=== PATIENT | male | born 1955 | race Caucasian/White ===

== ENCOUNTER 2020-02-28 12:19 | Inpatient (IN) | payer OTHER ==
[~2020-02-28] VITALS: Ht 175 cm; Wt 95.0 kg
[2020-02-28] MEDS ORDERED: LACTATED RINGERS 1,000 ML IV ONE ×2 (12:37→13:33)
[2020-02-28 13:03] LABS: BASOPHILS % (AUTO) 0 % (0-10); EOSINOPHILS % (AUTO) 0 % (0-10); HEMATOCRIT 43 % (40-54); HEMOGLOBIN 15.1 G/DL (13.3-17.7); LYMPHOCYTES # (AUTO) 0.2 X 10^3 (1.0-4.0); LYMPHOCYTES % (AUTO) 8 % (12-44); MEAN CORPUSCULAR HEMOGLOBIN 29 PG (25-34); MEAN CORPUSCULAR HGB CONC 35 G/DL (32-36); MEAN CORPUSCULAR VOLUME 83 FL (80-99); MEAN PLATELET VOLUME 9.1 FL (7.4-10.4); MONOCYTES # (AUTO) 0.2 X 10^3 (0.0-1.0); MONOCYTES % (AUTO) 7 % (0-12); NEUTROPHILS # (AUTO) 2.2 X 10^3 (1.8-7.8); NEUTROPHILS % (AUTO) 85 % (42-75); PLATELET COUNT 103 10^3/uL (130-400); RED CELL DISTRIBUTION WIDTH 13.1 % (10.0-14.5); WHITE BLOOD COUNT 2.6 10^3/uL (4.3-11.0)
[2020-02-28] MEDS ORDERED: TRZ50T PO (13:07)
[2020-02-28] MEDS ORDERED: ALLO300T2 PO (13:07)
[2020-02-28 13:12] LABS: ALBUMIN 3.9 GM/DL (3.2-4.5); POTASSIUM 4.4 MMOL/L (3.6-5.0)
[2020-02-28 13:13] LABS: CALCIUM 8.9 MG/DL (8.5-10.1)
[2020-02-28 13:15] LABS: TOTAL PROTEIN 7.2 GM/DL (6.4-8.2)
[2020-02-28 13:16] LABS: BILIRUBIN,TOTAL 0.5 MG/DL (0.1-1.0)
[2020-02-28 13:18] LABS: CREATININE SERUM 1.62 MG/DL (0.60-1.30)
--- NOTE | 2020-02-28 13:29 | ED General ---
General Chief Complaint: General Problems/Pain Stated Complaint: WEAKNESS/COVID + Nursing Triage Note: PT TO COVID UNIT, PT STATES WAS + ON 02/21, SX STARTED ON 02/16. PT CO OF WEAKNESS, DIARRHEA, PERSISTANT COUGH, NO TASTE OR SMELL, LOW GRADE FEVER, AND SEVERE FATIGUE Nursing Sepsis Screen: No Definite Risk Source of Information: Patient Exam Limitations: No Limitations History of Present Illness Date Seen by Provider: Feb 28, 2020 Time Seen by Provider: 12:37 Initial Comments Here with report of weakness, diarrhea, cough, lack of taste and smell and significant fatigue. Diagnosed with COVID 19 on 02/21. States he feels dehydrated and is overall feeling worse. Has intermittent headaches as well as intermittent fevers. Denies being significantly short of breath currently. Patient does report 2-3 coughing fits daily that are significant in that seems to be worsening some. Timing/Duration: 1 Week, Getting Worse Severity: Moderate Associated Systoms: No Chest Pain; Cough, Fever/Chills, Headaches, Malaise; No Nausea/Vomiting, No Shortness of Air; Weakness Allergies and Home Medications Allergies Coded Allergies: No Known Drug Allergies (Unverified , 02/28/20) Patient Home Medication List Home Medication List Reviewed: Yes Review of Systems Review of Systems Constitutional: see HPI EENTM: No nose congestion, No throat pain Respiratory: cough; No short of breath Cardiovascular: no symptoms reported Gastrointestinal: see HPI; No abdominal pain; diarrhea Genitourinary: No dysuria, No pain Musculoskeletal: muscle pain, muscle weakness Skin: no symptoms reported All Other Systems Reviewed Negative Unless Noted: Yes Past Rmbnxwo-Sgpdhl-Ifktti Hx Past Med/Social Hx: Reviewed Nursing Past Med/Soc Hx Patient Social History Alcohol Use: Denies Use Recreational Drug Use: No Smoking Status: Never a Smoker Recent Foreign Travel: No Contact w/Someone Who Travel: No Recent Infectious Disease Expo: No Recent Hopitalizations: No Physical Abuse: No Sexual Abuse: No Past Medical History Surgeries: No Respiratory: No Cardiac: No Neurological: No Genitourinary: No Gastrointestinal: No Musculoskeletal: Yes Gout Endocrine: No HEENT: No Cancer: No Psychosocial: No Integumentary: No Family Medical History Reviewed Nursing Family Hx No Pertinent Family Hx Physical Exam Vital Signs Vital Signs - First Documented 02/28/20 02/28/20 12:35 14:11 Temp 36.6 Pulse 89 Resp 20 B/P (MAP) 134/97 (109) Pulse Ox 93 O2 Delivery Room Air O2 Flow Rate 2.00 Capillary Refill : Less Than 3 Seconds Height, Weight, BMI Height: '" Weight: lbs. oz. kg; 31.00 BMI Method: General Appearance: No Apparent Distress, WD/WN HEENT: PERRL/EOMI, Pharynx Normal Neck: Non Tender, Supple Respiratory: Lungs Clear, Normal Breath Sounds Cardiovascular: Regular Rate, Rhythm, No Murmur Gastrointestinal: Non Tender, Soft Back: Normal Inspection, No CVA Tenderness, No Vertebral Tenderness Extremity: Normal Range of Motion, Non Tender Neurologic/Psychiatric: Alert, Oriented x3 Skin: Normal Color, Warm/Dry Progress/Results/Core Measures Suspected Sepsis Recent Fever Within 48 Hours: Yes Infection Criteria Present: Documented Infection New/Unexplained Altered Menta: No Sepsis Screen: No Definite Risk SIRS Temperature: Pulse: 89 Respiratory Rate: 20 Laboratory Tests 02/28/20 12:45: White Blood Count 2.6L Blood Pressure 134 /97 Mean: 109 Laboratory Tests 02/28/20 12:45: Creatinine 1.62H, Platelet Count 103L, Total Bilirubin 0.5 Results/Orders Lab Results Laboratory Tests Test 02/28/20 12:45 02/28/20 13:45 Range/Units White Blood Count 2.6 L 4.3-11.0 10^3/uL Red Blood Count 5.23 4.35-5.85 10^6/uL Hemoglobin 15.1 13.3-17.7 G/DL Hematocrit 43 40-54 % Mean Corpuscular Volume 83 80-99 FL Mean Corpuscular Hemoglobin 29 25-34 PG Mean Corpuscular Hemoglobin Concent 35 32-36 G/DL Red Cell Distribution Width 13.1 10.0-14.5 % Platelet Count 103 L 130-400 10^3/uL Mean Platelet Volume 9.1 7.4-10.4 FL Neutrophils (%) (Auto) 85 H 42-75 % Lymphocytes (%) (Auto) 8 L 12-44 % Monocytes (%) (Auto) 7 0-12 % Eosinophils (%) (Auto) 0 0-10 % Basophils (%) (Auto) 0 0-10 % Neutrophils # (Auto) 2.2 1.8-7.8 X 10^3 Lymphocytes # (Auto) 0.2 L 1.0-4.0 X 10^3 Monocytes # (Auto) 0.2 0.0-1.0 X 10^3 Eosinophils # (Auto) 0.0 0.0-0.3 10^3/uL Basophils # (Auto) 0.0 0.0-0.1 10^3/uL Sodium Level 132 L 135-145 MMOL/L Potassium Level 4.4 3.6-5.0 MMOL/L Chloride Level 99 98-107 MMOL/L Carbon Dioxide Level 21 21-32 MMOL/L Anion Gap 12 5-14 MMOL/L Blood Urea Nitrogen 19 H 7-18 MG/DL Creatinine 1.62 H 0.60-1.30 MG/DL Estimat Glomerular Filtration Rate 43 BUN/Creatinine Ratio 12 Glucose Level 271 H 70-105 MG/DL Calcium Level 8.9 8.5-10.1 MG/DL Corrected Calcium 9.0 8.5-10.1 MG/DL Total Bilirubin 0.5 0.1-1.0 MG/DL Aspartate Amino Transf (AST/SGOT) 31 5-34 U/L Alanine Aminotransferase (ALT/SGPT) 30 0-55 U/L Alkaline Phosphatase 81 40-136 U/L C-Reactive Protein High Sensitivity 11.86 H 0.00-0.50 MG/DL Total Protein 7.2 6.4-8.2 GM/DL Albumin 3.9 3.2-4.5 GM/DL My Orders Orders - ELISABETH SANTIZO MD Cbc With Automated Diff (02/28/20 12:37) Comprehensive Metabolic Panel (02/28/20 12:37) Hs C Reactive Protein (02/28/20 12:37) Ua Culture If Indicated (02/28/20 12:37) Ed Iv/Invasive Line Start (02/28/20 12:37) Lactated Ringers (Lr 1000 Ml Iv Solution (02/28/20 12:37) Chest 1 View, Ap/Pa Only (02/28/20 12:37) Dexamethasone Tablet (Decadron Tablet) (02/28/20 13:45) Lactated Ringers (Lr 1000 Ml Iv Solution (02/28/20 13:33) Covid-19 External Lab Results (02/28/20 14:15) Medications Given in ED Current Medications Medications Dose Ordered Sig/Star Route Start Time Stop Time Status Last Admin Dose Admin Lactated Ringer's 1,000 ml @ 0 mls/hr Q0M ONCE IV 02/28/20 12:37 02/28/20 12:41 DC 02/28/20 12:50 1,000 MLS/HR Lactated Ringer's 1,000 ml @ 0 mls/hr Q0M ONCE IV 02/28/20 13:33 02/28/20 13:34 DC 02/28/20 13:40 1,000 MLS/HR Vital Signs/I&O 02/28/20 02/28/20 12:35 14:11 Temp 36.6 Pulse 89 80 Resp 20 20 B/P (MAP) 134/97 (109) 148/97 (109) Pulse Ox 93 99 O2 Delivery Room Air Nasal Cannula O2 Flow Rate 2.00 Capillary Refill : Less Than 3 Seconds Blood Pressure Mean: 109 Progress Note : Progress Note Seen and evaluated initially via video and then in person. IV, labs, chest x-ray and LR 1 L bolus ordered. Monitor patient. 1400: Repeat LR 1 L bolus ordered. I did discuss the case with Dr. Espinoza especially due to the patient's x-ray. Patient is COVID-19 positive. At this point I think admission is indicated and she agrees. Decadron 6 mg by mouth. We will continue that daily. Patient has elevated blood sugar and we will initiate insulin sliding scale. All findings and concerns were discussed with the patient and he agrees with admission. Patient is much more comfortable on oxygen. Diagnostic Imaging Diagonstic Imaging: Xray Plain Films/CT/US/NM/MRI: chest Comments [facility] [place] NAME: FREDDY MADRIGAL [facility] REC#: [id number] PT STATUS: ADM IN : 1955 PHYSICIAN: ELISABETH SANTIZO MD ADMIT DATE: 02/28/20/ Draft Date of Exam:02/28/20 CHEST 1 VIEW, AP/PA ONLY INDICATION: Weakness, shortness of air. COMPARISON: None available. TECHNIQUE: Single radiograph of the chest dated February 28, 2020. FINDINGS: The cardiac silhouette is normal in size. No significant pulmonary vascular congestion. Patchy predominantly airspace opacities are noted within the bilateral lungs, greatest within the periphery. No significant pleural effusion. No pneumothorax. No acute osseous abnormality. IMPRESSION: Bilateral pulmonary infiltrates as described above. Findings concerning for infectious etiology, including COVID-19. Dictated on workstation # [id number] Dict: 02/28/20 1341 Trans: 02/28/20 1355 [employer] [id number] Interpreted by: JHON STINSON MD Electronically signed by: Departure Communication (Admissions) Time/Spoke to Admitting Phy: 13:55 Impression Primary Impression: Coronavirus infection Additional Impression: Viral pneumonia Disposition: ADMITTED INPATIENT Condition: Stable Admissions Decision to Admit Reason: Admit from ER (General) Decision to Admit/Date: Feb 28, 2020 Time/Decision to Admit Time: 13:55 ELISABETH SANTIZO MD Feb 28, 2020 13:29
--- NOTE | 2020-02-28 13:56 | Diagnostic Imaging Report ---
INDICATION: Weakness, shortness of air. COMPARISON: None available. TECHNIQUE: Single radiograph of the chest dated February 28, 2020. FINDINGS: The cardiac silhouette is normal in size. No significant pulmonary vascular congestion. Patchy predominantly airspace opacities are noted within the bilateral lungs, greatest within the periphery. No significant pleural effusion. No pneumothorax. No acute osseous abnormality. IMPRESSION: Bilateral pulmonary infiltrates as described above. Findings concerning for infectious etiology, including COVID-19. Dictated by: Dictated on workstation # [id number]
--- OUTSIDE RECORDS SUMMARY | 2020-02-28 14:01 | XMS REPORT ---
Author Author Sotne STEELE Organization [facility] Address [address] [place] [address] Care Team Providers Care Agricultural Engineering Teacher Name Role Phone IVETTE HAMIDA Unavailable PROBLEMS Unknown Problems ALLERGIES No Known Allergies ENCOUNTERS Encounter Location Date Diagnosis [place] [address] [place], [place] [id number] [place] [phone] Aug, [facility] [address] [place] [address] May, Allergic contact dermatitis due to plants, except food L23.7 [place] [address] [place], [place] [id number] [place] [phone] May, [place] [address] [place] [id number] [place] [phone] May, [place] [address] [place] [id number] [place] [phone] 9 Apr, Lipid screening Z13.220 ; Well adult exam Z00.00 and Anoxia due to high altitude, initial encounter T70.29XA [place] [address] [place] [id number] [address] Feb, [facility] [address] [place] [id number] [place] [phone] 9 Feb, [facility] [address] [address] [facility] [id number] [place] [address] Oct, Acute midline low back pain without scia juarez M54.5 [facility] [address] [place] [id number] [address] Oct, Acute midline low back pain without sciatica M54.5 [place] [address] [place], [place] [id number] [place] [phone] 9 Oct, IMMUNIZATIONS No Known Immunizations SOCIAL HISTORY Never Assessed REASON FOR VISIT Fell on ice a couple months ago and has had lower back pain since, jerson vicenteRN PLAN OF CARE Activity Details Follow Up prn Reason: VITAL SIGNS Height 70 in 2018-10-13 Weight 222 lbs 2018-10-13 Temperature 98 degrees Fahrenheit 2018-10-13 Heart Rate 84 bpm 2018-10-13 Respiratory Rate 14 2018-10-13 BMI 31.85 kg/m2 2018-10-13 Blood pressure systolic 132 mmHg 2018-10-13 Blood pressure diastolic 78 mmHg 2018-10-13 MEDICATIONS Medication Instructions Dosage Frequency Start Date End Date Duration S tatus Allopurinol 300 TAKE 0.5 TABLETS (150 MG) BY MOUTH DAILY. Active Trazodone HCl 50 TAKE 1 TABLET BY MOUTH AT BEDTIME 90 Active Tramadol HCl 50 TAKE 1 TABLET BY MOUTH EVERY 4 HOURS NEED ED FOR PAIN 16 Active Pantoprazole Sodium 40 1 TAB PO DAILY,INSTR:TK 1 T PO QD Active RESULTS No Results PROCEDURES No Known procedures INSTRUCTIONS MEDICATIONS ADMINISTERED No Known Medications MEDICAL (GENERAL) HISTORY Type Description Date Medical History gout Medical History chronic sleep disorder Medical History meniscal tear...right Surgical History meniscal tear repair ...right Hospitalization History see surgeries
--- OUTSIDE RECORDS SUMMARY | 2020-02-28 14:02 | XMS REPORT | Continuity of Care Document ---
Author Organization Unknown Address Unknown Phone Unavailable Allergies Active Description Code Type Severity Reaction Onset Reported/Identified Relationship to Patient Clinical Status Yes NO KNOWN DRUG ALLERGIES 66260 Drug Class N/A N/A 06/29/2012 Medications There is no data. Problems Date Dx Coded Attending Type Code Diagnosis Diagnosed By 06/10/2019 R06.09 Oth er forms of dyspnea 06/10/[address] for immunization 06/10/2019 R06.02 Oxana rtness of breath 06/10/[address] for immunization 06/10/2019 R06.02 Oxana rtness of breath 06/10/2019 R06.02 Oxana rtness of breath Procedures Code Description Performed By Per formed On PFT13 PULM ONARY FUNCTION TEST 06/10/2019 PFT22 STRE SS TEST, PULMONARY 6MWT 06/10/2019 IMM85 FLU VACCINE GREATER THAN OR EQUAL TO 6MO PRESERVATIVE FREE QUADRIVALENT IM 06/10/2019 Results Test Result Range A1C - 04/21/19 09:06 HEMOGLOBIN A1c 7.3 % of total Hgb <5.7 TEST AUTHORIZATION - 04/21/19 09:06 TEST NAME: HEMOGLOBIN A1c [facility] TEST CODE: 496SB NR CLIENT CONTACT: NATE CARDONA [facility] REPORT ALWAYS MESSAGE SIGNATURE NRG COMMENT NRG PATHOLOGY REPORT (TISSUE PAHOLOGY) - 05/23 15:29 A SOURCE NRG A GROSS DESCRIPTION NRG A DIAGNOSIS NRG CLINICAL INFORMATION NR PATHOLOGIST NRG Complete blood count (CBC) with automate d white blood cell (WBC) differential - 02/28/20 12:45 Blood leukocytes automated count (number/volume) 2.6 10*3/uL 4.3-11.0 Blood erythrocytes automated count (number/volume) 5.23 10*6/uL 4.35-5.85 Venous blood hemoglobin measurement (mass/volume) 15.1 g/dL 13.3-17.7 Blood hematocrit (volume fraction) 43 % 40-54 Automated erythrocyte mean corpuscular volume 83 [ foz_us] 80-99 Automated erythrocyte mean corpuscular h emoglobin (mass per erythrocyte) 29 pg 25-34 Automated erythrocyte mean corpuscular h emoglobin concentration measurement (mass/volume) 35 g/dL 32-36 Automated erythrocyte distribution width ratio 13. 1 % 10.0- 14.5 Automated blood platelet count (count/volume) 103 10*3/uL 130-400 Automated blood platelet mean volume measurement 9.1 [foz_us] 7.4-10.4 Automated blood neutrophils/100 leukocytes 85 % 42-75 Automated blood lymphocytes/100 leukocytes 8 % 12-44 Blood monocytes/100 leukocytes 7 % 0-12 Automated blood eosinophils/100 leukocytes 0 % 0-10 Automated blood basophils/100 leukocytes 0 % 0-10 Blood neutrophils automated count (number/volume) 2.2 10*3 1.8-7.8 Blood lymphocytes automated count (number/volume) 0.2 10*3 1.0-4.0 Blood monocytes automated count (number/volume) 0. 2 10*3 0.0-1.0 Automated eosinophil count 0.0 10*3/uL 0 .0-0.3 Automated blood basophil count (count/volume) 0.0 10*3/uL 0.0-0.1 Comprehensive metabolic panel - 02/28/20 12:45 Serum or plasma sodium measurement (moles/volume) 132 mmol/L 135-145 Serum or plasma potassium measurement (moles/volume) 4.4 mmol/L 3.6-5.0 Serum or plasma chloride measurement (moles/volume) 99 mmol/L 98-107 Carbon dioxide 21 mmol/L 21-32 Serum or plasma anion gap determination (moles/volume) 12 mmol/L 5-14 Serum or plasma urea nitrogen measurement (mass/volume ) 19 mg/dL 7-18 Serum or plasma creatinine measurement (mass/volume) 1.62 mg/dL 0.60-1.30 Serum or plasma urea nitrogen/creatinine mass ratio 12 NRG Serum or plasma creatinine measurement w ith calculation of estimated glomerular filtration rate 43 NRG Serum or plasma glucose measurement (mass/volume) 271 mg/dL 70-105 Serum or plasma calcium measurement (mass/volume) 8.9 mg/dL 8.5-10.1 Serum or plasma total bilirubin measurement (mass/volu me) 0.5 mg/dL 0.1-1.0 Serum or plasma alkaline phosphatase wilmer surement (enzymatic activity/volume) 81 U/L 40-136 Serum or plasma aspartate aminotransfera se measurement (enzymatic activity/volume) 31 U/L 5-34 Serum or plasma alanine aminotransferase measurement (enzymatic activity/volume) 30 U/L 0-55 Serum or plasma protein measurement (mass/volume) 7.2 g/dL 6.4-8.2 Serum or plasma albumin measurement (mass/volume) 3.9 g/dL 3.2-4.5 CALCIUM CORRECTED 9.0 mg/dL 8.5-10.1 Serum or plasma C reactive protein measu rement (mass/volume) - 02/28/20 12:45 Serum or plasma C reactive protein measurement (mass/v olume) 11.86 mg/dL 0.00-0.50 Encounters ACCT No. Visit Date/Time Discharge Status Pt. Type Provider Facility Loc./Unit Complaint [id number] 06/10/2019 11:09:10 23:59:59 CLS Outpatient [facility] TASHI P XR Shortness of breath [id number] 06/10/2019 10:46:27 Document Registration [id number] 06/10/2019 10:45:08 Document Registration [id number] 02/28/2020 13:04:00 Document Registration [id number] 01/21/2020 13:00:00 01/21/2020 23:59: 59 CLS Outpatient [facility] [id number] 01/12/2020 14:20:00 Document Registration [id number] 04/21/2019 08:20:00 Document Registration
[2020-02-28 14:12] LABS: BILIRUBIN,URINE NEGATIVE (NEGATIVE); CLARITY,URINE CLEAR; COLOR,URINE YELLOW; GLUCOSE, URINE (UA) 3+ (NEGATIVE); KETONES,URINE NEGATIVE (NEGATIVE); LEUKOCYTE ESTERASE ,URINE NEGATIVE (NEGATIVE); NITRITE,URINE NEGATIVE (NEGATIVE); PROTEIN,URINE 1+ (NEGATIVE)
[2020-02-28] MEDS ORDERED: CATHETER FLUSH 10 ML SYR IV PRN (14:15)
[2020-02-28 14:21] LABS: BACTERIA,URINE NEGATIVE /HPF; WBC,URINE RARE /HPF
--- NOTE | 2020-02-28 14:45 | NUR ---
FREDDY MADRIGAL admitted to room 433-1, with an admitting diagnosis of pna, on 02/28/20 from ED via wheel chair , accompanied by staf .FREDDY MADRIGAL introduced to surroundings, call light, bed controls, phone, TV, temperature control, lights, meal times, smoking policy, visitor policy, side rail policy, bathrooms and showers. Patient Rights given to patient in the handbook. FREDDY MADRIGAL verbalizes understanding that [facility] is not responsible for the loss or damage to any personal effects or valuables that are kept in the patients posession during their hospitalization. The following Patient Care Plans and discharge were discussed with the patient. FREDDY MADRIGAL verbalizes understanding of Interdisciplinary Patient Education. Patient informed about the Rapid Response Team and its purpose.
[2020-02-28 14:48] VITALS: BP 142/83
[2020-02-28] MEDS: LACTATED RINGERS 1,000 ML IV SCH ×2 (15:21→20:11)
[2020-02-28] MEDS: inSUlin ASPART (NovoLOG) 1 UNIT/0.01 ML (CHARGE PER UNIT) SC SCH ×2 (15:23→20:12)
--- OUTSIDE RECORDS SUMMARY | 2020-02-28 16:01 | XMS REPORT | Continuity of Care Document ---
Author Organization Unknown Address Unknown Phone Unavailable Allergies Active Description Code Type Severity Reaction Onset Reported/Identified Relationship to Patient Clinical Status Yes NO KNOWN DRUG ALLERGIES 30943 Drug Class N/A N/A 06/29/2012 Yes No Known Drug Allergies [id number] Drug Allergy Unknown N/A 02/28/2020 Medications There is no data. Problems Date [...] - 04/21/19 09:06 TEST NAME: HEMOGLOBIN A1c NRG TEST CODE: 496SB NR CLIENT CONTACT: NATE CARDONA NRG REPORT ALWAYS MESSAGE SIGNATURE NRG COMMENT NRG PATHOLOGY REPORT (TISSUE PAHOLOGY) - 05/23 15:29 A SOURCE NRG A GROSS DESCRIPTION NRG A DIAGNOSIS NRG CLINICAL INFORMATION NRG PATHOLOGIST NRG Complete blood count (CBC) with [...] protein measurement (mass/v olume) 11.86 mg/dL 0.00-0.50 Complete urinalysis with reflex to cultu re - 02/28/20 13:45 Urine color determination YELLOW NRG Urine clarity determination CLEAR NR G Urine pH measurement by test strip 5.0 5-9 Specific gravity of urine by test strip 1.010 1.016-1.022 Urine protein assay by test strip, semi-quantitative 1+ NEGATIVE Urine glucose detection by automated test strip 3+ NEGATIVE Erythrocytes detection in urine sediment by light micr oscopy NEGATIVE NEGATIVE Urine ketones detection by automated test strip NE GATIVE NEGATIVE Urine nitrite detection by test strip NEGATIVE NEGATIVE Urine total bilirubin detection by test strip NEGA TIVE NEGATIVE Urine urobilinogen measurement by automated test strip (mass/volume) 0.2 mg/dL < = 1.0 Urine leukocyte esterase detection by dipstick NEG ATIVE NEGATIVE Automated urine sediment erythrocyte cou nt by microscopy (number/high power field) NONE NRG Automated urine sediment leukocyte count by microscopy (number/high power field) RARE NRG Bacteria detection in urine sediment by light microsco py NEGATIVE NRG Crystals detection in urine sediment by light microsco py NONE NRG Casts detection in urine sediment by light microscopy NONE NRG Mucus detection in urine sediment by light microscopy NEGATIVE NRG Complete urinalysis with reflex to culture NO NRG Capillary blood glucose measurement by g lucometer (mass/volume) - 02/28/20 15:18 Capillary blood glucose measurement by glucometer (mas s/volume) 230 mg/dL 70-110 Encounters ACCT No. Visit Date/Time Discharge Status Pt. Type Provider Facility Loc./Unit Complaint [id number] 06/10/2019 11:09:10 23:59:59 CLS Outpatient ASYA TASHI P XR Shortness of breath [id number] 06/10/2019 10:46:27 Document Registration [id number] 06/10/2019 10:45:08 Document Registration [id number] 02/28/2020 13:55:[address] Inpatient BERNADETTE MCMAHON, GERARDO [facility] 4TH COVID +;PNEUMONIA BILAT;HYPE RGLYCEMIA [id number] 01/21/2020 13:00:00 01/21/2020 23:59: 59 CLS Outpatient [facility] [id number] 01/12/2020 14:20:00 Document Registration [id number] 04/21/2019 08:20:00 Document Registration
[2020-02-28 16:06] VITALS: BP 142/83
[2020-02-28] MEDS ORDERED: CHLORASEPTIC LOZENGE MM PRN (17:00)
[2020-02-28] MEDS: guaiFENesin/DM (ROBITUSSIN DM) 10 ML UDC PO PRN (17:29)
[2020-02-28] MEDS ORDERED: PANT40TA2 PO (17:33)
[2020-02-28] MEDS ORDERED: ALPR0.5T PO (17:33)
[2020-02-28] MEDS: ALPRAZolam 0.5 MG (XANAX) TAB PO PRN (20:11)
[2020-02-28] MEDS: traZODone 50 MG (DESYREL) TAB PO SCH (20:11)
[2020-02-28 20:15] VITALS: BP 136/82
[2020-02-28] MEDS ORDERED: ALLOPURINOL 300 MG (ZYLOPRIM) TAB PO SCH (21:00)
--- NOTE | 2020-02-28 21:37 | NUR ---
Dr. Mcadams notified of (and patients) concerns for use of an inhaler given patients prior lung issues/history. (pt currently on 2L NC sats at 97%) No new orders rec. Will continue to monitor.
[2020-02-29] VITALS (7 sets, daily range): BP systolic 119–157; BP diastolic 68–88
[2020-02-29] MEDS: LACTATED RINGERS 1,000 ML IV SCH ×3 (02:14→18:12)
[2020-02-29 06:03] LABS: BASOPHILS % (AUTO) 0 % (0-10); EOSINOPHILS % (AUTO) 0 % (0-10); HEMATOCRIT 38 % (40-54); LYMPHOCYTES # (AUTO) 0.2 X 10^3 (1.0-4.0); LYMPHOCYTES % (AUTO) 7 % (12-44); MEAN CORPUSCULAR HEMOGLOBIN 29 PG (25-34); MEAN CORPUSCULAR HGB CONC 34 G/DL (32-36); MEAN CORPUSCULAR VOLUME 83 FL (80-99); MEAN PLATELET VOLUME 9.8 FL (7.4-10.4); MONOCYTES # (AUTO) 0.2 X 10^3 (0.0-1.0); MONOCYTES % (AUTO) 7 % (0-12); NEUTROPHILS # (AUTO) 2.5 X 10^3 (1.8-7.8); NEUTROPHILS % (AUTO) 86 % (42-75); PLATELET COUNT 106 10^3/uL (130-400); RED CELL DISTRIBUTION WIDTH 12.4 % (10.0-14.5); WHITE BLOOD COUNT 2.9 10^3/uL (4.3-11.0)
[2020-02-29 06:14] LABS: ALBUMIN 3.4 GM/DL (3.2-4.5)
[2020-02-29 06:15] LABS: POTASSIUM 4.7 MMOL/L (3.6-5.0)
[2020-02-29 06:16] LABS: CALCIUM 8.4 MG/DL (8.5-10.1)
[2020-02-29 06:17] LABS: TOTAL PROTEIN 6.4 GM/DL (6.4-8.2)
[2020-02-29 06:19] LABS: BILIRUBIN,TOTAL 0.5 MG/DL (0.1-1.0)
[2020-02-29 06:21] LABS: CREATININE SERUM 1.4 MG/DL (0.60-1.30)
[2020-02-29] MEDS: inSUlin ASPART (NovoLOG) 1 UNIT/0.01 ML (CHARGE PER UNIT) SC SCH ×4 (06:28→20:01)
[2020-02-29] MEDS ORDERED: CHOL10007 PO (08:33)
[2020-02-29] MEDS ORDERED: ASCO250T16 PO (08:33)
[2020-02-29] MEDS ORDERED: IBUP-30 PO (08:33)
[2020-02-29] MEDS ORDERED: RT-ALBUINH PO (08:33)
[2020-02-29] MEDS ORDERED: ACET325T38 PO (08:33)
--- NOTE | 2020-02-29 08:37 | NUR ---
SPOKE WITH THE PT (I CALLED HIS ROOM PHONE) AND WENT THRU THE EXT MED HISTORY TO COMPLETE THE MED REC ALL MEDS WERE LISTED ON THE EXT MED HISTORY AND PT WAS ABLE TO TELL ME WHEN/HOW HE TAKES EACH MED OTC MEDS: VIT D VIT C IBUPROFEN TYLENOL
[2020-02-29] MEDS: PANTOPRAZOLE 40 MG (PROTONIX) TAB PO SCH ×2 (09:18→09:22)
[2020-02-29] MEDS: guaiFENesin/DM (ROBITUSSIN DM) 10 ML UDC PO PRN (09:19)
[2020-02-29] MEDS ORDERED: MELATONIN 3 MG TABLET PO PRN (11:15)
[2020-02-29] MEDS ORDERED: ONDANSETRON 4 MG/2 ML (SDV) Z0FRAN IV PRN (11:15)
[2020-02-29] MEDS ORDERED: ACETAMINOPHEN 325 MG TABLET PO PRN (11:15)
[2020-02-29] MEDS ORDERED: MILK OF MAGNESIA 400 MG/5 ML 30 ML UDC PO PRN (11:15)
--- NOTE | 2020-02-29 11:30 | NUR ---
CM/SS: Visited with pt via telephone to verify his contact information as well as introduce myself and role in his discharge planning. Plan: Pt is from home and lives with his Summary: Verified pt's insurance information and contact information for his spouse. Pt sounds good on the phone. 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 Pt can provide the nurse a copy of his card so that is can be copies for his chart. This worker will pass along the information to registration. This worker will follow up.
--- NOTE | 2020-02-29 13:36 | History & Physical-Hospitalist ---
History of Present Illness HPI/Chief Complaint Pt is 64yoCM with PMH of prediabetes who presented to the ER due to weakness and known COVID19 infection. He became symptomatic on 02/16 and was diagnosed with COVID19 on 02/21. He reported feeling more weak, having a cough, diarrhea, and lack of taste and smell. He also has significant malaise. Per his he has some residual lung damage from a pneumonia ~15 years ago and they were concerned about how his lungs were. He was mildly hypoxic but felt short of breath yesterday. He reports feeling better today but has a headache. Source: patient Exam Limitations: no limitations Date Seen 02/29/20 Time Seen by a Provider: 11:30 Attending Physician Gerardo Espinoza MD PCP No,Local Physician Referring Physician Date of Admission Feb 28, 2020 at 13:55 Home Medications & Allergies Home Medications Reviewed patient Home Medication Reconciliation performed by pharmacy medication reconciliations ecg technician and/or nursing. Patients Allergies have been reviewed. Allergies Allergies Coded Allergies No Known Drug Allergies (Unverified02/28/20) Past Hzbbkwu-Rsntsx-Zvsjll Hx Past Med/Social Hx: Reviewed Nursing Past Med/Soc Hx Patient Social History Alcohol Use: Denies Use Recreational Drug Use: No Smoking Status: Never a Smoker Physical Abuse Screen: No Sexual Abuse: No Recent Foreign Travel: No Contact w/other who traveled: No Recent Hopitalizations: No Recent Infectious Disease Expo: No Seasonal Allergies Seasonal Allergies: No Past Medical History Currently Using CPAP: No Currently Using BIPAP: No Gastrointestinal: Gastroesophageal Reflux, Hiatal Hernia Musculoskeletal: Gout History of Blood Disorders: No Adverse Reaction to Blood Jarvis: No Family History Reviewed Nursing Family Hx Diabetes mellitus G8 BROTHER G8 SISTER FHx: breast cancer 19 MOTHER No Pertinent Family Hx Review of Systems Constitutional: fever, malaise, weakness EENTM: no symptoms reported Respiratory: cough, short of breath Cardiovascular: no symptoms reported Gastrointestinal: diarrhea Genitourinary: no symptoms reported Musculoskeletal: muscle weakness Skin: no symptoms reported Psychiatric/Neurological: Headache, Weakness Physical Exam Physical Exam Vital Signs Vital Signs - First Documented 02/28/20 02/28/20 12:35 14:11 Temp 36.6 Pulse 89 Resp 20 B/P (MAP) 134/97 (109) Pulse Ox 93 O2 Delivery Room Air O2 Flow Rate 2.00 Capillary Refill : Less Than 3 Seconds Height, Weight, BMI Height: '" Weight: lbs. oz. kg; 31.02 BMI Method: General Appearance: No Apparent Distress, WD/WN HEENT: PERRL/EOMI, Moist Mucous Membranes; No Scleral Icterus (L), No Scleral Icterus (R) Neck: Full Range of Motion, Supple Respiratory: Lungs Clear, No Accessory Muscle Use, No Respiratory Distress Cardiovascular: Regular Rate, Rhythm, No JVD, No Murmur Gastrointestinal: Normal Bowel Sounds, Non Tender, Soft Extremity: Normal Inspection, No Pedal Edema Neurologic/Psychiatric: Alert, Oriented x3, Normal Mood/Affect Skin: Normal Color, Warm/Dry Results Results/Procedures Labs Laboratory Tests 02/28/20 12:45 02/29/20 05:52 Patient resulted labs reviewed. Imaging: Reviewed Imaging Report Imaging [facility] [place], [place] NAME: FREDDY MADRIGAL [facility] REC#: [id number] PT STATUS: ADM IN : 1955 PHYSICIAN: ELISABETH SANTIZO MD ADMIT DATE: 02/28/20 Signed Date of Exam:02/28/20 CHEST 1 VIEW, AP/PA ONLY INDICATION: Weakness, shortness of air. COMPARISON: None available. TECHNIQUE: Single radiograph of the chest dated February 28, 2020. FINDINGS: The cardiac silhouette is normal in size. No significant pulmonary vascular congestion. Patchy predominantly airspace opacities are noted within the bilateral lungs, greatest within the periphery. No significant pleural effusion. No pneumothorax. No acute osseous abnormality. IMPRESSION: Bilateral pulmonary infiltrates as described above. Findings concerning for infectious etiology, including COVID-19. Dictated by: Dictated on workstation # [id number] Dict: 02/28/20 1341 Trans: 02/28/20 1649 [facility] [id number] Interpreted by: JHON STINSON MD Electronically signed by: JHON STINSON MD 02/28/20 6700 Assessment/Plan Admission Diagnosis COVID19 Admission Status: Inpatient Order (span 2 midnights) Reason for Inpatient Admission: see below Assessment and Plan COVID19 Hypoxia Continue on decadron Titrate oxygen as able Outside of window for Remdesivir Continue supportive management Elevated blood sugars History of pre-diabetes Fasting blood sugar 270 this AM (but on steroids) Continue sliding scale Will likely need metformin on discharge but hesitate to start now due to diarrhea Clinical Quality Measures DVT/VTE Risk/Contraindication: Risk Factor Score Per Nursin RFS Level Per Nursing on Admit: 2=Moderate GERARDO ESPINOZA MD Feb 29, 2020 13:35
[2020-02-29] MEDS: traZODone 50 MG (DESYREL) TAB PO SCH (20:00)
[2020-02-29] MEDS: ALLOPURINOL 300 MG (ZYLOPRIM) TAB PO SCH (20:00)
[2020-02-29] MEDS: ALPRAZolam 0.5 MG (XANAX) TAB PO PRN (20:00)
--- NOTE | 2020-02-29 20:10 | Discharge Inst-Simple/Standard ---
Discharge Inst-Standard Reconcile Patient Problems Problems Reviewed?: Yes Patient Instructions/Follow Up Plan of Care/Instructions/FU: Please continue to take your medications as written. Please follow up with your primary care doctor in the next week to follow up this hospital stay. Activity as Tolerated: Yes Discharge Diet: ADA Diet Return to The Hospital For: Chest pain, shortness of breath, fever, weakness, if you feel you are getting worse. GERARDO FLEMING MD Feb 29, 2020 20:10
[2020-03-01] MEDS: guaiFENesin/DM (ROBITUSSIN DM) 10 ML UDC PO PRN ×2 (03:45→08:47)
[2020-03-01] MEDS: LACTATED RINGERS 1,000 ML IV SCH (05:56)
[2020-03-01] MEDS: inSUlin ASPART (NovoLOG) 1 UNIT/0.01 ML (CHARGE PER UNIT) SC SCH ×4 (05:56→20:55)
[2020-03-01 08:44] VITALS: BP 127/73
[2020-03-01] MEDS: ANTACID SUSP 30 ML UDC (MYLANTA) PO PRN (08:48)
--- NOTE | 2020-03-01 10:36 | Progress Note - Hospitalist ---
Subjective HPI/CC On Admission Date Seen by Provider: Mar 01, 2020 Time Seen by Provider: 10:30 Pt is 64yoCM with PMH of prediabetes who presented to the ER due to weakness and known COVID19 infection. He became symptomatic on 02/16 and was diagnosed with COVID19 on 02/21. He reported feeling more weak, having a cough, diarrhea, and lack of taste and smell. He also has significant malaise. Per his he has some residual lung damage from a pneumonia ~15 years ago and they were concerned about how his lungs were. He was mildly hypoxic but felt short of breath yesterday. He reports feeling better today but has a headache. Subjective/Events-last exam Pt reports still not feeling well but improving in some ways. Headache improving. Cough bad at night but improving overnight. Objective Exam Vital Signs Vital Signs Date Time Temp Pulse Resp B/P (MAP) Pulse Ox O2 Delivery O2 Flow Rate FiO2 03/01/20 08:56 37.3 03/01/20 08:53 94 Nasal Cannula 2.00 03/01/20 08:44 76 18 127/73 (91) Capillary Refill : Less Than 3 Seconds General Appearance: No Apparent Distress, WD/WN Respiratory: No Accessory Muscle Use, Crackles (on first inspiration and then cleared) Cardiovascular: Regular Rate, Rhythm, No Murmur Gastrointestinal: Normal Bowel Sounds, Non Tender, Soft Neurologic/Psychiatric: Alert, Oriented x3 Results/Procedures Lab Patient resulted labs reviewed. Imaging: Reviewed Imaging Report Assessment/Plan Assessment and Plan Assess & Plan/Chief Complaint COVID19 Hypoxia Continue on decadron Titrate oxygen as able Outside of window for Remdesivir Continue supportive management Add incentive spirometry MAT protocol Elevated blood sugars History of pre-diabetes Fasting blood sugar 270 this AM (but on steroids) Continue sliding scale Will likely need metformin on discharge but hesitate to start now due to diarrhea Diagnosis/Problems Diagnosis/Problems (1) Hyperglycemia (2) Coronavirus infection Status: Acute (3) Viral pneumonia Status: Acute Clinical Quality Measures DVT/VTE Risk/Contraindication: Risk Factor Score Per Nursin RFS Level Per Nursing on Admit: 2=Moderate GERARDO FLEMING MD Mar 01, 2020 10:36
[2020-03-01 11:18] VITALS: BP 127/73
[2020-03-01] MEDS ORDERED: RT-ALBUTEROL INHALER HFA (VENTOLIN HFA) 18 GM IH PRN (11:30)
[2020-03-01] MEDS: RT-ALBUTEROL INHALER HFA (VENTOLIN HFA) 18 GM IH SCH ×3 (14:47→21:49)
[2020-03-01 16:14] VITALS: BP 187/82
--- NOTE | 2020-03-01 16:28 | Diagnostic Imaging Report ---
INDICATION: Respiratory distress. EXAMINATION: Portable erect AP chest at 4:06 p.m. FINDINGS: By history, the patient is positive for Covid. The recent exam of 01/29/2020 did note bilateral pulmonary infiltrates. On this exam, the alveolar/interstitial infiltrates in each lung base has increased since the prior exam. The lung apices remain clear. The heart does seem more prominent than the prior exam but there is no evidence for overt failure. The mediastinum is not widened. The osseous structures are intact. IMPRESSION: The appearance of the chest has worsened since the prior study as there is greater involvement of both lungs by pneumonia/atelectasis. The heart is also slightly increased in size. A follow-up exam would be recommended for continued evaluation. Dictated by: Dictated on workstation # [id number]
[2020-03-01] MEDS ORDERED: ZOLPIDEM 5 MG (AMBIEN) TAB ONE (20:20)
[2020-03-01] MEDS: ALLOPURINOL 300 MG (ZYLOPRIM) TAB PO SCH (20:55)
[2020-03-01] MEDS: traZODone 50 MG (DESYREL) TAB PO SCH (20:55)
[2020-03-01] MEDS ORDERED: ZOLPIDEM 5 MG (AMBIEN) TAB PO SCH (21:00)
[2020-03-01] MEDS: PROMETHAZINE/ CODEINE SYRUP 5 ML UDC PO PRN (21:04)
[2020-03-02 00:12] VITALS: BP 126/77
[2020-03-02] MEDS: RT-ALBUTEROL INHALER HFA (VENTOLIN HFA) 18 GM IH SCH ×3 (01:55→13:50)
[2020-03-02 05:18] LABS: RED CELL DISTRIBUTION WIDTH 12.6 % (10.0-14.5); WHITE BLOOD COUNT 3.8 10^3/uL (4.3-11.0)
[2020-03-02 05:33] LABS: CREATININE SERUM 1.29 MG/DL (0.60-1.30); POTASSIUM 4.3 MMOL/L (3.6-5.0)
[2020-03-02] MEDS: PROMETHAZINE/ CODEINE SYRUP 5 ML UDC PO PRN (05:50)
[2020-03-02] MEDS: inSUlin ASPART (NovoLOG) 1 UNIT/0.01 ML (CHARGE PER UNIT) SC SCH ×2 (05:50→10:42)
[2020-03-02 06:23] VITALS: BP 126/77
--- NOTE | 2020-03-02 07:17 | Diagnostic Imaging Report ---
INDICATION: Pneumonia COMPARISON: 03/01/2020 FINDINGS: Single view chest demonstrates persistent but decreased patchy bilateral pulmonary infiltrates. There is no pneumothorax or effusion. Heart remains prominent. Osseous structures stable. IMPRESSION: Slight improved aeration. Dictated by: Dictated on workstation # [id number]
[2020-03-02 08:02] VITALS: BP 111/78
[2020-03-02] MEDS: ANTACID SUSP 30 ML UDC (MYLANTA) PO PRN (08:05)
[2020-03-02] MEDS ORDERED: DEXA6TAB PO (12:36)
--- NOTE | 2020-03-02 14:00 | NUR ---
PATIENT DID NOT QUALIFY FOR O2 AT THIS TIME. PATIENT'S O2 SATURATION DID NOT DROP BELOW 92% FOR THE ENTIRE TEST. Addendum: 03/02/20 at 1400 by FREDDIE MUIR RT Amended: Links added.
--- NOTE | 2020-03-02 14:04 | Discharge Summary ---
Diagnosis/Chief Complaint Date of Admission Feb 28, 2020 at 13:55 Date of Discharge Discharge Date: Mar 02, 2020 Admission Diagnosis COVID19 Primary Care Discharge Diagnosis (1) Hyperglycemia (2) Coronavirus infection Status: Acute (3) Viral pneumonia Status: Acute Discharge Summary Discharge Physical Exam Allergies: Coded Allergies: No Known Drug Allergies (Unverified , 02/28/20) Vitals & I&Os Vital Signs Date Time Temp Pulse Resp B/P (MAP) Pulse Ox O2 Delivery O2 Flow Rate FiO2 03/02/20 13:56 82 93 03/02/20 13:50 Room Air 03/02/20 08:02 37.1 18 111/78 (89) 03/02/20 06:23 21 03/01/20 21:49 2.00 General Appearance: No Apparent Distress, WD/WN Respiratory: Lungs Clear, No Respiratory Distress Cardiovascular: Regular Rate, Rhythm, No Murmur Neurologic/Psychiatric: Alert, Oriented x3 Hospital Course Pt was admitted to the hospital due to COVID19. He was treated with decadron and did well. He only had marginal oxygen requirement, mostly for comfort, and was q uickly titrated off oxygen and fatigue improved. He was found to be hyperglycemic and was treated with sliding scale insulin. He does have baseline prediabetes but this was presumed to be exacerbated by steroid use. I called and updated his PCP, Dr Jain's office and spoke directly with his reptile farmer, Dr Cortez regarding his case. He was discharged home at his request in stable and improved condition. Labs (last 24 hrs) Laboratory Tests 03/01/20 15:53: Glucometer 344H 03/01/20 20:51: Glucometer 364H 03/02/20 05:09: White Blood Count 3.8L, Red Blood Count 4.54, Hemoglobin 13.0L, Hematocrit 38L, Mean Corpuscular Volume 83, Mean Corpuscular Hemoglobin 29, Mean Corpuscular Hemoglobin Concent 35, Red Cell Distribution Width 12.6, Platelet Count 124L, Mean Platelet Volume 10.0, Sodium Level 136, Potassium Level 4.3, Chloride Level 105, Carbon Dioxide Level 21, Anion Gap 10, Blood Urea Nitrogen 24H, Creatinine 1.29, Estimat Glomerular Filtration Rate 56, BUN/Creatinine Ratio 19, Glucose Level 249H, Calcium Level 8.0L, Procalcitonin 0.15H 03/02/20 07:59: Glucometer 197H 03/02/20 10:40: Glucometer 288H Patient resulted labs reviewed. Pending Labs Laboratory Tests 03/02/20 07:59: Glucometer 197 03/02/20 10:40: Glucometer 288 Imaging: Reviewed Imaging Report Discussion & Recommendations Discharge Planning: >30 minutes discharge planning Discharge Home Medications: Active Scripts Active Dexamethasone 6 Mg Tablet 6 Mg PO DAILY Reported Tylenol (Acetaminophen) 325 Mg Tablet 650 Mg PO Q8H PRN Advil (Ibuprofen) 200 Mg Tablet 400 Mg PO Q8H PRN Vitamin C (Ascorbic Acid) 250 Mg Tab 250 Mg PO DAILY Vitamin D3 (Cholecalciferol (Vitamin D3)) 25 Mcg Capsule 25 Mcg PO DAILY Ventolin Hfa (Albuterol Sulfate) 1 Puff Puff 2 Puff PO Q6H PRN Xanax (Alprazolam) 0.5 Mg Tablet 0.5 Mg PO BID PRN Protonix (Pantoprazole Sodium) 40 Mg Tablet.dr 40 Mg PO DAILY Allopurinol 300 Mg Tablet 150 Mg PO HS TAKES OF A 300MG Trazodone HCl 50 Mg Tablet 50 Mg PO HS Instructions to patient/family Please see electronic discharge instructions given to patient. Clinical Quality Measures DVT/VTE Risk/Contraindication: Risk Factor Score Per Nursin RFS Level Per Nursing on Admit: 2=Moderate GERARDO FLEMING MD Mar 02, 2020 14:04
[2020-03-02 14:55] VITALS: BP 111/78
== END 2020-03-02 14:30 | disposition home or self-care (01) | DRG 177 ==
LOC: ER 12:24 → 4TH 13:55
PROVIDERS: ADMIT Family Medicine; ATTEND Family Medicine
DX: U07.1 COVID-19 (principal); J12.89 Other viral pneumonia; R73.9 Hyperglycemia, unspecified; R09.02 Hypoxemia; M10.9 Gout, unspecified; K21.9 Gastro-esophageal reflux disease without esophagitis; R19.7 Diarrhea, unspecified; K44.9 Diaphragmatic hernia without obstruction or gangrene; T38.0X5A Adverse effect of glucocorticoids and synthetic analogues, initial encounter
CPT/HCPCS: 36415; 71045; 80048; 80053; 81000; 82962; 84145; 85025; 85027; 86141; 94640; 94664; 94760; 94761

== ENCOUNTER → 2021-12-07 | Outpatient (CLI) | payer OTHER ==
[~2021-12-07] MED LIST: ACET325T38 PO; ALLO300T2 PO; ALPR0.5T PO; ASCO250T16 PO; CHOL10007 PO; DEXA6TAB PO; IBUP-30 PO; PANT40TA2 PO; RT-ALBUINH PO; TRZ50T PO
== END ==
LOC: LABNPT 07:45
PROVIDERS: ATTEND Family Medicine
DX: Z01.812 Encounter for preprocedural laboratory examination (principal); Z20.822 Contact with and (suspected) exposure to COVID-19
CPT/HCPCS: 87636

== ENCOUNTER → 2022-02-15 | Outpatient (CLI) | payer OTHER | LOC: LAB 09:11 | PROVIDERS: ATTEND Family Medicine | DX: Z01.812 Encounter for preprocedural laboratory examination (principal); Z20.822 Contact with and (suspected) exposure to COVID-19 | CPT/HCPCS: 87636 ==

== ENCOUNTER → 2022-03-13 | Outpatient (CLI) | payer OTHER | LOC: LAB 08:02 | PROVIDERS: ATTEND Family Medicine | DX: Z20.822 Contact with and (suspected) exposure to COVID-19 (principal) | CPT/HCPCS: 87636 ==

== ENCOUNTER 2023-07-04 07:48 | Outpatient (CLI) | payer MEDICARE, OTHER ==
[~2023-07-04] VITALS: Ht 177.8 cm; Wt 95.0 kg
[2023-07-09] MEDS ORDERED: LISI10TA25 PO (10:18)
[2023-07-09] MEDS ORDERED: METF-399 PO (10:18)
[2023-07-11] MEDS ORDERED: METO50TA7 PO (10:21)
== END 2023-07-09 10:27 | disposition home or self-care (01) ==
LOC: PREOP 07:48
PROVIDERS: ATTEND Internal Medicine
DX: Z01.818 Encounter for other preprocedural examination (principal)